=== PATIENT | female | born 1985 | race Caucasian/White ===

== ENCOUNTER 2016-04-05 12:19 | Outpatient (CLI) | payer OTHER ==
--- NOTE | 2016-04-05 13:35 | History and Physical Report ---
History of Present Illness Date of examination: 04/05/16 Chief complaint: new left breast mass Medications and Allergies Allergies Allergy/AdvReac Type Severity Reaction Status Date / Time No Known Allergies Allergy Unverified 04/05/16 12:19
--- NOTE | 2016-04-05 13:36 | Procedure Note ---
Date of procedure: 04/05/16 Pre-op diagnosis: lt. breast mass Post-op diagnosis: same Procedure: u/s guided bx Findings: solid tissue Anesthesia: local Surgeon: ADAM PÉREZ Estimated blood loss: none Pathology: list (lt breast tissue) Specimen disposition: to lab Condition: stable Disposition: same day
--- NOTE | 2016-04-05 13:50 | Ultrasound Report ---
Left breast biopsy: Ultrasound was used for imaging. Outside images were included by the patient demonstrating a large inhomogeneous and palpable mass in the superior left breast. The mass is somewhat well defined and diffusely inhomogeneous measuring approximately 17 x 45 mm. There is some scattered internal blood flow by color imaging. A lateral approach was used. The skin was cleansed and 1% lidocaine used for local anesthesia. A 13-gauge guide was placed through which a 14-gauge disposable Bard biopsy spring-loaded guide was used to take numerous samples through the lesion. Various areas of the lesion were sampled. A marker was left in place. A followup mammogram to confirm positioning and a marker in an area of somewhat ill-defined and inhomogeneous increased density. No complications encountered. The patient was given followup instructions and discharged. Instructions were primarily given during the procedure and following the procedure through her who has a working knowledge of [place]o.
== END 2016-04-05 12:20 | disposition home or self-care (01) ==
LOC: US 12:19
PROVIDERS: ATTEND Surgery
DX: N63 Unspecified lump in breast (principal)
CPT/HCPCS: 19083; 88305; A4648; G0206

== ENCOUNTER 2016-05-24 11:30 | Outpatient (CLI) | payer OTHER ==
--- NOTE | 2016-05-24 16:44 | Mammography Report ---
Left mammogram and left breast ultrasound: The patient has a history of recent benign left breast biopsy. She indicates no obvious change in her breast since the procedure. Routine views are compared her postbiopsy exam on April 05, 2016. The area that was biopsied containing a clip is slightly denser than the adjacent tissue but there is no definable mass. The findings appear unchanged. Left breast ultrasound in the lung o'clock position demonstrates a relatively well-defined inhomogeneous and elongated mass measuring 4.9 cm in greatest dimension. There is mild internal vascularity color imaging. A biopsy marker is identified in the central lesion. Compared to the prior ultrasound on April 05 there has been no significant change. Impression: Stable left breast mass. Recommendation: Clinical/imaging followup per your protocol. BI-RADS CATEGORY: 2 = Benign ACR BI-RADS MAMMOGRAPHIC CODES: 0 = Needs additional imaging evaluation; 1 = Negative; 2 = Benign; 3 = Probably benign; 4 = Suspicious; 5 = Malignant; 6 = Known biopsy-proven malignancy COMMENT: 1. Dense breast tissue, i.e., adenosis, fibrocystic changes, etc., may obscure an underlying neoplasm. 2. Approximately 10% of cancers are not detected with mammography. 3. A negative mammography report should not delay biopsy if a clinically suspicious mass is present.
== END 2016-05-24 11:31 | disposition home or self-care (01) ==
LOC: MAMMO 11:30
PROVIDERS: ATTEND Surgery
DX: N63 Unspecified lump in breast (principal)
CPT/HCPCS: 76642; G0206